=== PATIENT | female | born 1985 | race Two or more races ===

== ENCOUNTER 2025-06-10 01:30 | Emergency (ER) | payer MEDICAID, SELFPAY ==
[2025-06-10 01:35] VITALS: BP 134/82; PULSE 88; RESP 18; TEMP 36.4; O2SAT 99; BMI 25.9
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
[2025-06-10 02:39] LABS: HCG Qualitative,Urine Negative
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
[2025-06-10] MEDS: KETOROLAC INJ 60 MG/2 ML VIAL 30 MG IM (04:38)
== END 2025-06-10 04:43 ==
DX: Z02.89 Encounter for other administrative examinations (principal); R51.9 Headache, unspecified; R20.0 Anesthesia of skin; T14.8XXA Other injury of unspecified body region, initial encounter; V89.2XXA Person injured in unspecified motor-vehicle accident, traffic, initial encounter; Y92.410 Unspecified street and highway as the place of occurrence of the external cause
CPT/HCPCS: 70450; 81025; 96372; 99283; J1885